=== PATIENT | male | born 1935 | race Caucasian/White ===

== ENCOUNTER 2021-10-16 16:28 | Inpatient (IN) ==
[2021-10-16 17:47] LABS: Hematocrit 24 % (42-52); Hemoglobin 7.9 g/dL (14.0-18.0); Mean Corpuscular HGB Conc 33 g/dL (31-36); Mean Corpuscular Hemoglobin 33 pg (27-31); Mean Corpuscular Volume 101 fL (80-94); Mean Platelet Volume 8.3 fL (7.4-10.4); Platelet Count 202 10^3/uL (150-450); Red Blood Count 2.38 10^6 /uL (4.18-5.48); Red Cell Distribution Width 27 % (10-15); White Blood Count 5.6 10^3/uL (3.5-10.8)
[2021-10-16 17:55] LABS: INR 1.28 (0.86-1.15)
[2021-10-16 18:16] LABS: Albumin 3.4 g/dL (3.2-5.2); Albumin/Globulin Ratio 1.5 (1-3); Calcium 8.6 mg/dL (8.6-10.3); Globulin 2.3 g/dL (2-4); Total Bilirubin 0.9 mg/dL (0.2-1.0); Total Protein 5.7 g/dL (6.4-8.9); eGFR CKD-EPI 18.8 (>60)
[2021-10-16 18:43] LABS: Macrocytosis 1+
[2021-10-16 18:44] LABS: Polychromasia 2+
[2021-10-16 18:47] LABS: Anisocytosis 2+
[2021-10-16 18:48] LABS: ABS Lymphocytes 1.8 10^3/ul (1.0-4.8); ABS Monocytes 0.8 10^3/ul (0-0.8); ABS Neutrophils 2.8 10^3/ul (1.5-7.7); Eosinophil % 0.5 %; Lymphocyte % 32.7 %; Nucleated Red Blood Cells % 0.5
[2021-10-16 19:22] LABS: High Sensitivity Troponin 1 Hr 16 pg/mL (<20)
[2021-10-16] MEDS ORDERED: Albuterol HFA INHALER 8 gm MDI INH PRN (21:22)
[2021-10-16] MEDS ORDERED: Dextrose 50% Syringe 50 ml 25 GM/50 ML SYRINGE IV PUSH PRN (21:26)
[2021-10-16] MEDS ORDERED: Furosemide 40 mg/4 ml IV VIAL IV ONE (22:23)
[2021-10-17] MEDS: Albuterol HFA INHALER 8 gm MDI INH PRN ×4 (02:48→17:35)
[2021-10-17 05:32] LABS: Hematocrit 26 % (42-52); Hemoglobin 8.7 g/dL (14.0-18.0); Mean Corpuscular HGB Conc 33 g/dL (31-36); Mean Corpuscular Hemoglobin 33 pg (27-31); Mean Corpuscular Volume 98 fL (80-94); Mean Platelet Volume 8.2 fL (7.4-10.4); Platelet Count 181 10^3/uL (150-450); Red Blood Count 2.68 10^6 /uL (4.18-5.48); Red Cell Distribution Width 26 % (10-15)
[2021-10-17 06:03] LABS: ABS Lymphocytes 0.6 10^3/ul (1.0-4.8); ABS Monocytes 0.1 10^3/ul (0-0.8); ABS Neutrophils 4.3 10^3/ul (1.5-7.7); Eosinophil % 0.1 %; Lymphocyte % 11.5 %; Nucleated Red Blood Cells % 0.5
[2021-10-17 06:17] LABS: Calcium 8.6 mg/dL (8.6-10.3); eGFR CKD-EPI 18.9 (>60)
[2021-10-17 06:27] LABS: Potassium 5.1 mmol/L (3.5-5.0)
[2021-10-17] MEDS: Mometasone/Formoter 200/5 MDI INH SCH ×2 (07:21→19:36)
[2021-10-17] MEDS: SPIRIVA Respimat (tiotropium) 2.5 mcg/inh Inhaler INH SCH (07:21)
[2021-10-17] MEDS: HYDROcodone/ACETAMIN 5/325 mg TAB PO PRN (08:11)
[2021-10-17] MEDS: NF: Lifitegrast (NF) 1 BTL BOTH EYES SCH ×2 (09:03→23:33)
[2021-10-17] MEDS: Carboxymethylcellulose/Glyceri 10 ML OPHTH.GEL lubricant eye gel BOTH EYES SCH (10:30)
[2021-10-17] MEDS ORDERED: Furosemide 40 mg/4 ml IV VIAL IV ONE (11:58)
[2021-10-17] MEDS: Albuterol HFA INHALER 8 gm MDI INH SCH ×2 (19:36→22:52)
[2021-10-17] MEDS ORDERED: INSULIN SUBCUT SCH (21:00)
[2021-10-17] MEDS ORDERED: INSULIN DETEMIR U SUBCUT SCH (21:00)
[2021-10-17] MEDS ORDERED: Ondansetron 4 mg VIAL 2 MG/ML 2 ml VIAL IV ONE (21:01)
[2021-10-17] MEDS: Aspirin EC 81 mg TAB.EC (enteric coated) PO SCH (21:22)
[2021-10-18] MEDS: Albuterol HFA INHALER 8 gm MDI INH SCH ×4 (03:51→19:28)
[2021-10-18] MEDS ORDERED: Al Hydrox/Mg Hydrox/Simet LIQ 30 ML UDC PO ONE ×2 (04:28→07:20)
[2021-10-18 05:23] LABS: Hematocrit 27 % (42-52); Hemoglobin 8.9 g/dL (14.0-18.0); Mean Corpuscular HGB Conc 34 g/dL (31-36); Mean Corpuscular Hemoglobin 34 pg (27-31); Mean Corpuscular Volume 100 fL (80-94); Mean Platelet Volume 8.1 fL (7.4-10.4); Platelet Count 165 10^3/uL (150-450); Red Blood Count 2.67 10^6 /uL (4.18-5.48); Red Cell Distribution Width 26 % (10-15)
[2021-10-18 05:47] LABS: Calcium 8.5 mg/dL (8.6-10.3); Magnesium 2.2 mg/dL (1.9-2.7); Potassium 4.7 mmol/L (3.5-5.0); eGFR CKD-EPI 18.5 (>60)
[2021-10-18 06:53] LABS: Basophilic Stippling 2+; Macrocytosis 2+
[2021-10-18 06:54] LABS: Polychromasia 2+
[2021-10-18 06:55] LABS: Schistocytes 1+
[2021-10-18 07:05] LABS: ABS Monocytes 0.6 10^3/ul (0-0.8); ABS Neutrophils 2.3 10^3/ul (1.5-7.7); Lymphocyte % 26.4 %
[2021-10-18] MEDS: SPIRIVA Respimat (tiotropium) 2.5 mcg/inh Inhaler INH SCH (07:26)
[2021-10-18] MEDS: Mometasone/Formoter 200/5 MDI INH SCH ×2 (07:26→19:28)
[2021-10-18] MEDS: Carboxymethylcellulose/Glyceri 10 ML OPHTH.GEL lubricant eye gel BOTH EYES SCH (07:48)
[2021-10-18] MEDS ORDERED: Furosemide 40 mg/4 ml IV VIAL IV ONE (09:58)
[2021-10-18] MEDS: NF: Lifitegrast (NF) 1 BTL BOTH EYES SCH (11:56)
[2021-10-18] MEDS ORDERED: Piperacillin/Tazobac ADVAN 3.375 GM in NS 0.9% 100 ml BAG 100 ML IV ONE (12:49)
[2021-10-18 12:50] LABS: C Reactive Protein 7.71 mg/L (<8.01)
[2021-10-18] MEDS: HYDROcodone/ACETAMIN 5/325 mg TAB PO PRN ×2 (12:51→19:57)
[2021-10-18] MEDS ORDERED: Zosyn per Pharmacy NOTE FOLLOW UP SCH (13:00)
[2021-10-18] MEDS ORDERED: Furosemide 40 mg/4 ml IV VIAL IV SLOW PU ONE (15:32)
[2021-10-18] MEDS ORDERED: HYDROcodone/ACETAMIN 5/325 mg TAB PO ONE (15:34)
[2021-10-18] MEDS: ZOSYN 3.375 GM Q12H per EXTENDED INFUSION IV SCH (19:26)
[2021-10-18] MEDS ORDERED: Ondansetron 4 mg VIAL 2 MG/ML 2 ml VIAL IV ONE (19:36)
[2021-10-18] MEDS ORDERED: Morphine 10 MG/ML VIAL (1 ml) IV ONE (22:32)
[2021-10-19] MEDS: Aspirin EC 81 mg TAB.EC (enteric coated) PO SCH ×2 (00:15→19:51)
[2021-10-19] MEDS: NF: Lifitegrast (NF) 1 BTL BOTH EYES SCH ×2 (00:16→08:30)
[2021-10-19] MEDS: Albuterol HFA INHALER 8 gm MDI INH SCH ×2 (07:33→19:49)
[2021-10-19] MEDS: SPIRIVA Respimat (tiotropium) 2.5 mcg/inh Inhaler INH SCH (07:33)
[2021-10-19] MEDS: Mometasone/Formoter 200/5 MDI INH SCH ×2 (07:33→19:50)
[2021-10-19] MEDS: HYDROcodone/ACETAMIN 5/325 mg TAB PO PRN ×3 (08:32→22:00)
[2021-10-19] MEDS: Carboxymethylcellulose/Glyceri 10 ML OPHTH.GEL lubricant eye gel BOTH EYES SCH (08:33)
[2021-10-19] MEDS: ZOSYN 3.375 GM Q12H per EXTENDED INFUSION IV SCH (08:35)
[2021-10-19] MEDS ORDERED: Furosemide 40 mg/4 ml IV VIAL IV ONE ×2 (09:17)
[2021-10-19 09:38] LABS: Hematocrit 28 % (42-52); Hemoglobin 9.3 g/dL (14.0-18.0); Mean Corpuscular HGB Conc 33 g/dL (31-36); Mean Corpuscular Hemoglobin 33 pg (27-31); Mean Corpuscular Volume 100 fL (80-94); Mean Platelet Volume 8.3 fL (7.4-10.4); Platelet Count 153 10^3/uL (150-450); Red Blood Count 2.81 10^6 /uL (4.18-5.48); Red Cell Distribution Width 27 % (10-15); White Blood Count 8.5 10^3/uL (3.5-10.8)
[2021-10-19 10:05] LABS: Albumin 3.4 g/dL (3.2-5.2); Albumin/Globulin Ratio 1.5 (1-3); Calcium 8.1 mg/dL (8.6-10.3); Direct Bilirubin 0.2 mg/dL (0.03-0.18); Globulin 2.3 g/dL (2-4); Indirect Bilirubin 0.8 mg/dL (0.3-1.0); Potassium 4.4 mmol/L (3.5-5.0); Total Protein 5.7 g/dL (6.4-8.9); eGFR CKD-EPI 16.8 (>60)
[2021-10-19 10:42] LABS: Basophilic Stippling 2+; Polychromasia 2+
[2021-10-19 10:44] LABS: Macrocytosis 1+
[2021-10-19 10:50] LABS: ABS Lymphocytes 3.2 10^3/ul (1.0-4.8)
[2021-10-19] MEDS ORDERED: Simethicone SUSP ORALSYR 66.66 MG/ML PO PRN (12:09)
[2021-10-19] MEDS: Polyethylene Glycol 3350 17 GM PACKET PO PRN (14:50)
[2021-10-19] MEDS: Dextran 70/Hypromellose Tears Eye Drops 15 ml BTL (for Artificials Tears) BOTH EYES SCH (16:51)
[2021-10-19] MEDS: Senna TAB 8.6 mg TAB PO PRN (19:51)
[2021-10-20 06:04] LABS: Hematocrit 27 % (42-52); Hemoglobin 8.8 g/dL (14.0-18.0); Mean Corpuscular HGB Conc 33 g/dL (31-36); Mean Corpuscular Hemoglobin 33 pg (27-31); Mean Corpuscular Volume 101 fL (80-94); Mean Platelet Volume 8.7 fL (7.4-10.4); Platelet Count 139 10^3/uL (150-450); Red Blood Count 2.62 10^6 /uL (4.18-5.48); Red Cell Distribution Width 27 % (10-15); White Blood Count 6.5 10^3/uL (3.5-10.8)
[2021-10-20 06:06] LABS: ABS Lymphocytes 1.1 10^3/ul (1.0-4.8); ABS Monocytes 1.6 10^3/ul (0-0.8); ABS Neutrophils 3.9 10^3/ul (1.5-7.7); Eosinophil % 0.1 %; Lymphocyte % 16.2 %; Nucleated Red Blood Cells % 0.5
[2021-10-20 06:24] LABS: Calcium 7.7 mg/dL (8.6-10.3); Potassium 4.2 mmol/L (3.5-5.0); eGFR CKD-EPI 14.7 (>60)
[2021-10-20] MEDS: Albuterol HFA INHALER 8 gm MDI INH SCH ×2 (07:44→19:26)
[2021-10-20] MEDS: SPIRIVA Respimat (tiotropium) 2.5 mcg/inh Inhaler INH SCH (07:44)
[2021-10-20] MEDS: Mometasone/Formoter 200/5 MDI INH SCH ×2 (07:44→19:26)
[2021-10-20] MEDS: Dextran 70/Hypromellose Tears Eye Drops 15 ml BTL (for Artificials Tears) BOTH EYES SCH ×3 (08:03→21:58)
[2021-10-20] MEDS: Carboxymethylcellulose/Glyceri 10 ML OPHTH.GEL lubricant eye gel BOTH EYES SCH (08:17)
[2021-10-20] MEDS: Aspirin EC 81 mg TAB.EC (enteric coated) PO SCH (19:39)
[2021-10-20] MEDS: HYDROcodone/ACETAMIN 5/325 mg TAB PO PRN (21:14)
[2021-10-21 05:51] LABS: Hematocrit 25 % (42-52); Hemoglobin 8.3 g/dL (14.0-18.0); Mean Corpuscular HGB Conc 33 g/dL (31-36); Mean Corpuscular Hemoglobin 33 pg (27-31); Mean Corpuscular Volume 100 fL (80-94); Mean Platelet Volume 8.4 fL (7.4-10.4); Platelet Count 130 10^3/uL (150-450); Red Blood Count 2.53 10^6 /uL (4.18-5.48); Red Cell Distribution Width 27 % (10-15); White Blood Count 7.5 10^3/uL (3.5-10.8)
[2021-10-21 05:53] LABS: ABS Lymphocytes 1.9 10^3/ul (1.0-4.8); ABS Monocytes 2.2 10^3/ul (0-0.8); ABS Neutrophils 3.5 10^3/ul (1.5-7.7); Eosinophil % 0.3 %; Lymphocyte % 25.2 %; Nucleated Red Blood Cells % 0.4
[2021-10-21 06:05] LABS: Calcium 7.5 mg/dL (8.6-10.3); Potassium 4.6 mmol/L (3.5-5.0); eGFR CKD-EPI 12.6 (>60)
[2021-10-21 06:13] LABS: Anisocytosis 1+; Basophilic Stippling 1+; Polychromasia 1+
[2021-10-21] MEDS: SPIRIVA Respimat (tiotropium) 2.5 mcg/inh Inhaler INH SCH (07:48)
[2021-10-21] MEDS: Mometasone/Formoter 200/5 MDI INH SCH ×2 (07:50→19:06)
[2021-10-21] MEDS: Albuterol HFA INHALER 8 gm MDI INH SCH ×2 (07:53→19:06)
[2021-10-21] MEDS: Carboxymethylcellulose/Glyceri 10 ML OPHTH.GEL lubricant eye gel BOTH EYES SCH (08:17)
[2021-10-21] MEDS: Dextran 70/Hypromellose Tears Eye Drops 15 ml BTL (for Artificials Tears) BOTH EYES SCH ×2 (08:51→21:48)
[2021-10-21] MEDS: Oxymetazoline 0.05% NASAL SPR 15 ML BTL RIGHT NARE PRN (13:59)
[2021-10-21 21:18] LABS: Hematocrit 25 % (42-52); Hemoglobin 8.1 g/dL (14.0-18.0)
[2021-10-21] MEDS: Aspirin EC 81 mg TAB.EC (enteric coated) PO SCH (21:32)
[2021-10-22] MEDS: Oxymetazoline 0.05% NASAL SPR 15 ML BTL RIGHT NARE PRN (03:17)
[2021-10-22 06:03] LABS: Hematocrit 25 % (42-52); Hemoglobin 8.1 g/dL (14.0-18.0); Mean Corpuscular HGB Conc 33 g/dL (31-36); Mean Corpuscular Hemoglobin 33 pg (27-31); Mean Corpuscular Volume 100 fL (80-94); Mean Platelet Volume 8.8 fL (7.4-10.4); Platelet Count 128 10^3/uL (150-450); Red Blood Count 2.47 10^6 /uL (4.18-5.48); White Blood Count 12.6 10^3/uL (3.5-10.8)
[2021-10-22 06:21] LABS: Calcium 7.3 mg/dL (8.6-10.3); Magnesium 2.1 mg/dL (1.9-2.7); Potassium 4.8 mmol/L (3.5-5.0); eGFR CKD-EPI 11.8 (>60)
[2021-10-22 06:49] LABS: Red Cell Distribution Width 26 % (10-15)
[2021-10-22] MEDS: Albuterol HFA INHALER 8 gm MDI INH SCH ×2 (07:40→20:16)
[2021-10-22] MEDS: Mometasone/Formoter 200/5 MDI INH SCH ×2 (07:41→20:16)
[2021-10-22] MEDS: SPIRIVA Respimat (tiotropium) 2.5 mcg/inh Inhaler INH SCH (07:41)
[2021-10-22] MEDS ORDERED: Darbepoetin Alfa Albumen Free 500 MCG/ML SYRINGE SUBCUT ONE (08:00)
[2021-10-22] MEDS: Carboxymethylcellulose/Glyceri 10 ML OPHTH.GEL lubricant eye gel BOTH EYES SCH (09:00)
[2021-10-22] MEDS: Dextran 70/Hypromellose Tears Eye Drops 15 ml BTL (for Artificials Tears) BOTH EYES SCH ×2 (09:00→22:12)
[2021-10-22] MEDS ORDERED: Bumetanide IV 0.25 MG/ML 4 ml VIAL (1 mg) SLOW PUSH ONE (12:00)
[2021-10-22] MEDS: Polyethylene Glycol 3350 17 GM PACKET PO PRN (16:36)
[2021-10-22] MEDS: Aspirin EC 81 mg TAB.EC (enteric coated) PO SCH (21:02)
[2021-10-22] MEDS: HYDROcodone/ACETAMIN 5/325 mg TAB PO PRN (21:07)
[2021-10-23] MEDS: Oxymetazoline 0.05% NASAL SPR 15 ML BTL RIGHT NARE PRN ×2 (06:03→08:54)
[2021-10-23 06:06] LABS: Hematocrit 22 % (42-52); Hemoglobin 7.2 g/dL (14.0-18.0); Mean Corpuscular HGB Conc 33 g/dL (31-36); Mean Corpuscular Hemoglobin 33 pg (27-31); Mean Corpuscular Volume 100 fL (80-94); Platelet Count 128 10^3/uL (150-450); Red Blood Count 2.17 10^6 /uL (4.18-5.48); Red Cell Distribution Width 26 % (10-15); White Blood Count 14.6 10^3/uL (3.5-10.8)
[2021-10-23 06:25] LABS: Calcium 7.1 mg/dL (8.6-10.3); eGFR CKD-EPI 10.6 (>60)
[2021-10-23 06:30] LABS: Potassium 5.1 mmol/L (3.5-5.0)
[2021-10-23 07:32] LABS: Anisocytosis 2+
[2021-10-23 07:33] LABS: ABS Lymphocytes 1.5 10^3/ul (1.0-4.8); ABS Monocytes 4.4 10^3/ul (0-0.8); ABS Neutrophils 8.7 10^3/ul (1.5-7.7); Nucleated Red Blood Cells % 0.1
[2021-10-23 07:34] LABS: Eosinophil % 0.1 %; Lymphocyte % 10.1 %
[2021-10-23] MEDS: Mometasone/Formoter 200/5 MDI INH SCH ×2 (07:44→18:57)
[2021-10-23] MEDS: Albuterol HFA INHALER 8 gm MDI INH SCH ×2 (07:44→18:57)
[2021-10-23] MEDS: SPIRIVA Respimat (tiotropium) 2.5 mcg/inh Inhaler INH SCH (07:44)
[2021-10-23 08:42] LABS: C Reactive Protein 177.08 mg/L (<8.01)
[2021-10-23] MEDS: Dextran 70/Hypromellose Tears Eye Drops 15 ml BTL (for Artificials Tears) BOTH EYES SCH ×2 (10:05→21:27)
[2021-10-23] MEDS: Polyethylene Glycol 3350 17 GM PACKET PO PRN (10:06)
[2021-10-23] MEDS: Carboxymethylcellulose/Glyceri 10 ML OPHTH.GEL lubricant eye gel BOTH EYES SCH (10:12)
[2021-10-23] MEDS ORDERED: cefTRIAXone 1 gm/50 mL NS BAG 1 GM/50 ML BAG IVPB SCH (11:00)
[2021-10-23] MEDS: Azithromycin 500 mg/250 ml NS 500 MG/250 ML BAG IVPB SCH (11:38)
[2021-10-23] MEDS ORDERED: Bumetanide IV 0.25 MG/ML 4 ml VIAL (1 mg) SLOW PUSH ONE (12:00)
[2021-10-23 15:00] LABS: Hepatitis B Surface Ab Not Immune (Immune)
[2021-10-23 15:28] LABS: Hepatitis B Surface Antigen Nonreactive (Nonreactive)
[2021-10-23] MEDS: Senna TAB 8.6 mg TAB PO PRN (16:34)
[2021-10-23] MEDS: Aspirin EC 81 mg TAB.EC (enteric coated) PO SCH (21:25)
[2021-10-24 05:46] LABS: Hematocrit 22 % (42-52); Hemoglobin 7.2 g/dL (14.0-18.0); Mean Corpuscular HGB Conc 33 g/dL (31-36); Mean Corpuscular Hemoglobin 32 pg (27-31); Mean Corpuscular Volume 99 fL (80-94); Mean Platelet Volume 8.6 fL (7.4-10.4); Platelet Count 166 10^3/uL (150-450); Red Blood Count 2.25 10^6 /uL (4.18-5.48); Red Cell Distribution Width 26 % (10-15); White Blood Count 11.6 10^3/uL (3.5-10.8)
[2021-10-24 06:27] LABS: Calcium 7.3 mg/dL (8.6-10.3); eGFR CKD-EPI 10.5 (>60)
[2021-10-24 06:29] LABS: Potassium 5.1 mmol/L (3.5-5.0)
[2021-10-24 07:42] LABS: Anisocytosis 2+; Polychromasia 1+
[2021-10-24 07:45] LABS: Spherocytes 1+
[2021-10-24 07:46] LABS: ABS Lymphocytes 1.5 10^3/ul (1.0-4.8); ABS Monocytes 2.8 10^3/ul (0-0.8); ABS Neutrophils 7.2 10^3/ul (1.5-7.7); Eosinophil % 0.1 %; Lymphocyte % 12.9 %; Nucleated Red Blood Cells % 0.1
[2021-10-24] MEDS: Carboxymethylcellulose/Glyceri 10 ML OPHTH.GEL lubricant eye gel BOTH EYES SCH (08:18)
[2021-10-24] MEDS: Dextran 70/Hypromellose Tears Eye Drops 15 ml BTL (for Artificials Tears) BOTH EYES SCH ×2 (08:19→21:06)
[2021-10-24] MEDS: Insulin GLARGINE 100 un/ml 10 ml VIAL SUBCUT SCH (08:20)
[2021-10-24] MEDS: HYDROcodone/ACETAMIN 5/325 mg TAB PO PRN ×2 (08:22→21:04)
[2021-10-24] MEDS: Polyethylene Glycol 3350 17 GM PACKET PO PRN (08:24)
[2021-10-24] MEDS: Albuterol HFA INHALER 8 gm MDI INH SCH ×2 (08:38→19:23)
[2021-10-24] MEDS: Mometasone/Formoter 200/5 MDI INH SCH ×2 (08:38→19:23)
[2021-10-24] MEDS: SPIRIVA Respimat (tiotropium) 2.5 mcg/inh Inhaler INH SCH (08:39)
[2021-10-24] MEDS: Azithromycin 500 mg/250 ml NS 500 MG/250 ML BAG IVPB SCH (10:09)
[2021-10-24] MEDS ORDERED: fentaNYL 100 mcg/2 ml 50 MCG/ML VIAL ONE (11:57)
[2021-10-24] MEDS ORDERED: Midazolam 2 mg/2 ml VIAL 1 mg/ml 2 ml VIAL (2 mg) ONE (11:57)
[2021-10-24] MEDS ORDERED: Clindamycin 600 MG/D5W BAG 600 MG/50 ML BAG IV ONE (12:00)
[2021-10-24] MEDS: cefTRIAXone 1 gm/50 mL D5W 1 GM/50 ML BAG IV SCH (12:15)
[2021-10-24] MEDS: Heparin 1,000 UNIT/ML 10 ml (10,000 UNITS) CATHLAB/DIALYSIS DIALYSIS ONE ×2 (17:58→18:24)
[2021-10-24] MEDS: Senna TAB 8.6 mg TAB PO PRN (20:59)
[2021-10-24] MEDS: Aspirin EC 81 mg TAB.EC (enteric coated) PO SCH (20:59)
[2021-10-25 06:31] LABS: Hematocrit 24 % (42-52); Hemoglobin 7.8 g/dL (14.0-18.0); Mean Corpuscular HGB Conc 33 g/dL (31-36); Mean Corpuscular Hemoglobin 32 pg (27-31); Mean Corpuscular Volume 97 fL (80-94); Mean Platelet Volume 8.5 fL (7.4-10.4); Platelet Count 181 10^3/uL (150-450); Red Blood Count 2.42 10^6 /uL (4.18-5.48); Red Cell Distribution Width 26 % (10-15); White Blood Count 8.1 10^3/uL (3.5-10.8)
[2021-10-25 06:33] LABS: ABS Lymphocytes 1.3 10^3/ul (1.0-4.8); ABS Monocytes 2.1 10^3/ul (0-0.8); ABS Neutrophils 4.6 10^3/ul (1.5-7.7); Eosinophil % 0.3 %; Lymphocyte % 16.5 %
[2021-10-25 07:13] LABS: Potassium 4.8 mmol/L (3.5-5.0)
[2021-10-25 07:14] LABS: Calcium 7.3 mg/dL (8.6-10.3); Magnesium 1.9 mg/dL (1.9-2.7); eGFR CKD-EPI 13.9 (>60)
[2021-10-25] MEDS: SPIRIVA Respimat (tiotropium) 2.5 mcg/inh Inhaler INH SCH (07:18)
[2021-10-25] MEDS: Mometasone/Formoter 200/5 MDI INH SCH ×2 (07:19→19:32)
[2021-10-25] MEDS: Albuterol HFA INHALER 8 gm MDI INH SCH ×2 (07:19→19:32)
[2021-10-25] MEDS: Insulin GLARGINE 100 un/ml 10 ml VIAL SUBCUT SCH (08:15)
[2021-10-25] MEDS: Dextran 70/Hypromellose Tears Eye Drops 15 ml BTL (for Artificials Tears) BOTH EYES SCH ×2 (08:16→20:07)
[2021-10-25] MEDS: Carboxymethylcellulose/Glyceri 10 ML OPHTH.GEL lubricant eye gel BOTH EYES SCH (08:17)
[2021-10-25] MEDS: Polyethylene Glycol 3350 17 GM PACKET PO PRN (08:17)
[2021-10-25] MEDS ORDERED: Heparin 1,000 UNIT/ML 10 ml (10,000 UNITS) CATHLAB/DIALYSIS DIALYSIS ONE (11:00)
[2021-10-25] MEDS: Azithromycin 500 mg/250 ml NS 500 MG/250 ML BAG IVPB SCH (12:50)
[2021-10-25] MEDS: cefTRIAXone 1 gm/50 mL D5W 1 GM/50 ML BAG IV SCH (16:57)
[2021-10-25] MEDS: Bumetanide IV 0.25 MG/ML 4 ml VIAL (1 mg) SLOW PUSH SCH (17:14)
[2021-10-25] MEDS: Aspirin EC 81 mg TAB.EC (enteric coated) PO SCH (19:56)
[2021-10-25] MEDS: HYDROcodone/ACETAMIN 5/325 mg TAB PO PRN (20:00)
[2021-10-26 06:37] LABS: Hematocrit 26 % (42-52); Hemoglobin 8.9 g/dL (14.0-18.0); Mean Corpuscular HGB Conc 34 g/dL (31-36); Mean Corpuscular Hemoglobin 33 pg (27-31); Mean Corpuscular Volume 97 fL (80-94); Mean Platelet Volume 8.4 fL (7.4-10.4); Platelet Count 193 10^3/uL (150-450); Red Blood Count 2.71 10^6 /uL (4.18-5.48); Red Cell Distribution Width 26 % (10-15); White Blood Count 7.6 10^3/uL (3.5-10.8)
[2021-10-26 06:52] LABS: Anion Gap 8 mmol/L (2-11); Blood Urea Nitrogen 53 mg/dL (6-24); CO2 Carbon Dioxide 26 mmol/L (22-32); Calcium 7.3 mg/dL (8.6-10.3); Chloride 104 mmol/L (101-111); Glucose 115 mg/dL (70-100); Magnesium 1.8 mg/dL (1.9-2.7); Potassium 3.9 mmol/L (3.5-5.0); Sodium 138 mmol/L (135-145); eGFR CKD-EPI 17.1 (>60)
[2021-10-26 07:22] LABS: Anisocytosis 1+
[2021-10-26 07:24] LABS: ABS Lymphocytes 1.8 10^3/ul (1.0-4.8); ABS Neutrophils 4.6 10^3/ul (1.5-7.7)
[2021-10-26] MEDS: SPIRIVA Respimat (tiotropium) 2.5 mcg/inh Inhaler INH SCH (08:36)
[2021-10-26] MEDS: Albuterol HFA INHALER 8 gm MDI INH SCH ×2 (08:36→19:40)
[2021-10-26] MEDS: Mometasone/Formoter 200/5 MDI INH SCH ×2 (08:36→19:39)
[2021-10-26] MEDS: Insulin GLARGINE 100 un/ml 10 ml VIAL SUBCUT SCH (08:48)
[2021-10-26] MEDS: Dextran 70/Hypromellose Tears Eye Drops 15 ml BTL (for Artificials Tears) BOTH EYES SCH ×2 (08:54→21:15)
[2021-10-26] MEDS: Carboxymethylcellulose/Glyceri 10 ML OPHTH.GEL lubricant eye gel BOTH EYES SCH (08:54)
[2021-10-26] MEDS ORDERED: Bumetanide IV 0.25 MG/ML 4 ml VIAL (1 mg) SLOW PUSH ONE (10:00)
[2021-10-26] MEDS: Bumetanide IV 0.25 MG/ML 4 ml VIAL (1 mg) SLOW PUSH SCH (10:24)
[2021-10-26] MEDS: Azithromycin 500 mg/250 ml NS 500 MG/250 ML BAG IVPB SCH (10:24)
[2021-10-26 11:02] LABS: Folate > 20.00 ng/mL (5.90-24.80)
[2021-10-26] MEDS: cefTRIAXone 1 gm/50 mL D5W 1 GM/50 ML BAG IV SCH (12:23)
[2021-10-26] MEDS: Aspirin EC 81 mg TAB.EC (enteric coated) PO SCH (20:44)
[2021-10-27] MEDS: HYDROcodone/ACETAMIN 5/325 mg TAB PO PRN (02:05)
[2021-10-27 05:23] LABS: Calcium 7.3 mg/dL (8.6-10.3); Magnesium 1.8 mg/dL (1.9-2.7); Potassium 4.3 mmol/L (3.5-5.0); eGFR CKD-EPI 14.6 (>60)
[2021-10-27] MEDS: Insulin GLARGINE 100 un/ml 10 ml VIAL SUBCUT SCH (08:28)
[2021-10-27] MEDS: Bumetanide IV 0.25 MG/ML 4 ml VIAL (1 mg) SLOW PUSH SCH (08:30)
[2021-10-27] MEDS: Carboxymethylcellulose/Glyceri 10 ML OPHTH.GEL lubricant eye gel BOTH EYES SCH (08:33)
[2021-10-27] MEDS: Dextran 70/Hypromellose Tears Eye Drops 15 ml BTL (for Artificials Tears) BOTH EYES SCH ×2 (08:33→20:24)
[2021-10-27] MEDS: Mometasone/Formoter 200/5 MDI INH SCH ×2 (09:50→19:08)
[2021-10-27] MEDS: Albuterol HFA INHALER 8 gm MDI INH SCH ×2 (09:50→19:08)
[2021-10-27] MEDS: SPIRIVA Respimat (tiotropium) 2.5 mcg/inh Inhaler INH SCH (09:51)
[2021-10-27] MEDS: cefTRIAXone 1 gm/50 mL D5W 1 GM/50 ML BAG IV SCH (11:28)
[2021-10-27] MEDS: Aspirin EC 81 mg TAB.EC (enteric coated) PO SCH (20:24)
[2021-10-28] MEDS ORDERED: Morphine 4 MG/ML VIAL (1 ml) IV PRN (00:40)
[2021-10-28 05:57] LABS: Hematocrit 25 % (42-52); Hemoglobin 8.3 g/dL (14.0-18.0); Mean Corpuscular HGB Conc 33 g/dL (31-36); Mean Corpuscular Hemoglobin 33 pg (27-31); Mean Corpuscular Volume 98 fL (80-94); Mean Platelet Volume 8.2 fL (7.4-10.4); Platelet Count 212 10^3/uL (150-450); Red Blood Count 2.55 10^6 /uL (4.18-5.48); Red Cell Distribution Width 24 % (10-15); White Blood Count 9.3 10^3/uL (3.5-10.8)
[2021-10-28 07:34] LABS: Calcium 7.2 mg/dL (8.6-10.3); Potassium 4.7 mmol/L (3.5-5.0)
[2021-10-28 07:39] LABS: eGFR CKD-EPI 12.7 (>60)
[2021-10-28] MEDS: SPIRIVA Respimat (tiotropium) 2.5 mcg/inh Inhaler INH SCH (07:57)
[2021-10-28] MEDS: Mometasone/Formoter 200/5 MDI INH SCH ×2 (07:58→20:02)
[2021-10-28] MEDS: Albuterol HFA INHALER 8 gm MDI INH SCH ×2 (07:58→20:02)
[2021-10-28 08:07] LABS: Anisocytosis 2+
[2021-10-28 08:08] LABS: ABS Eosinophils 0.1 10^3/ul (0-0.6); ABS Neutrophils 5.2 10^3/ul (1.5-7.7); Eosinophil % 1.3 %; Lymphocyte % 21.4 %; Nucleated Red Blood Cells % 0.3; Polychromasia 1+
[2021-10-28] MEDS: Bumetanide IV 0.25 MG/ML 4 ml VIAL (1 mg) SLOW PUSH SCH (09:00)
[2021-10-28] MEDS: Carboxymethylcellulose/Glyceri 10 ML OPHTH.GEL lubricant eye gel BOTH EYES SCH (09:00)
[2021-10-28] MEDS: Dextran 70/Hypromellose Tears Eye Drops 15 ml BTL (for Artificials Tears) BOTH EYES SCH ×2 (09:00→21:37)
[2021-10-28] MEDS: Insulin GLARGINE 100 un/ml 10 ml VIAL SUBCUT SCH (09:37)
[2021-10-28] MEDS ORDERED: Heparin 1,000 UNIT/ML 10 ml (10,000 UNITS) CATHLAB/DIALYSIS DIALYSIS PRN (14:56)
[2021-10-28] MEDS ORDERED: HYDROmorphone 0.5 MG/0.5 ML SYRINGE IV SLOW PU PRN (18:18)
[2021-10-28] MEDS: Aspirin EC 81 mg TAB.EC (enteric coated) PO SCH (21:31)
[2021-10-29 06:21] LABS: Hematocrit 25 % (42-52); Hemoglobin 8.5 g/dL (14.0-18.0); Mean Corpuscular HGB Conc 34 g/dL (31-36); Mean Corpuscular Hemoglobin 33 pg (27-31); Mean Corpuscular Volume 98 fL (80-94); Mean Platelet Volume 7.8 fL (7.4-10.4); Platelet Count 200 10^3/uL (150-450); Red Blood Count 2.59 10^6 /uL (4.18-5.48); Red Cell Distribution Width 24 % (10-15); White Blood Count 7.9 10^3/uL (3.5-10.8)
[2021-10-29 07:08] LABS: Calcium 7.3 mg/dL (8.6-10.3); Magnesium 1.6 mg/dL (1.9-2.7); Potassium 4.3 mmol/L (3.5-5.0); eGFR CKD-EPI 20.8 (>60)
[2021-10-29] MEDS: Mometasone/Formoter 200/5 MDI INH SCH ×2 (07:09→19:48)
[2021-10-29] MEDS: SPIRIVA Respimat (tiotropium) 2.5 mcg/inh Inhaler INH SCH (07:09)
[2021-10-29] MEDS: Albuterol HFA INHALER 8 gm MDI INH SCH ×2 (07:09→19:49)
[2021-10-29] MEDS ORDERED: Magnesium Sulfate 2 gm BAG 2 GM/50 ML BAG IVPB ONE (07:40)
[2021-10-29] MEDS: Insulin GLARGINE 100 un/ml 10 ml VIAL SUBCUT SCH (09:28)
[2021-10-29] MEDS: Bumetanide IV 0.25 MG/ML 4 ml VIAL (1 mg) SLOW PUSH SCH (09:30)
[2021-10-29] MEDS: Dextran 70/Hypromellose Tears Eye Drops 15 ml BTL (for Artificials Tears) BOTH EYES SCH ×2 (09:31→21:13)
[2021-10-29] MEDS: Carboxymethylcellulose/Glyceri 10 ML OPHTH.GEL lubricant eye gel BOTH EYES SCH (09:32)
[2021-10-29] MEDS: Heparin 1,000 UNIT/ML 10 ml (10,000 UNITS) CATHLAB/DIALYSIS DIALYSIS ONE (17:48)
[2021-10-29] MEDS: Aspirin EC 81 mg TAB.EC (enteric coated) PO SCH (21:09)
[2021-10-30 06:14] LABS: Calcium 7.4 mg/dL (8.6-10.3); Magnesium 1.9 mg/dL (1.9-2.7); Potassium 4.7 mmol/L (3.5-5.0); eGFR CKD-EPI 15.7 (>60)
[2021-10-30] MEDS: Albuterol HFA INHALER 8 gm MDI INH SCH (07:25)
[2021-10-30] MEDS: SPIRIVA Respimat (tiotropium) 2.5 mcg/inh Inhaler INH SCH (07:26)
[2021-10-30] MEDS: Mometasone/Formoter 200/5 MDI INH SCH (07:26)
[2021-10-30] MEDS: Bumetanide IV 0.25 MG/ML 4 ml VIAL (1 mg) SLOW PUSH SCH (08:44)
[2021-10-30] MEDS: Dextran 70/Hypromellose Tears Eye Drops 15 ml BTL (for Artificials Tears) BOTH EYES SCH (08:46)
[2021-10-30] MEDS: Oxymetazoline 0.05% NASAL SPR 15 ML BTL RIGHT NARE PRN (08:46)
[2021-10-30] MEDS: Insulin GLARGINE 100 un/ml 10 ml VIAL SUBCUT SCH (09:04)
[2021-10-30] MEDS: Carboxymethylcellulose/Glyceri 10 ML OPHTH.GEL lubricant eye gel BOTH EYES SCH (09:05)
[2021-10-30 13:15] VITALS: BP 130/70
[2021-10-30] MEDS: Heparin 1,000 UNIT/ML 10 ml (10,000 UNITS) CATHLAB/DIALYSIS DIALYSIS ONE (13:29)
== END 2021-10-30 11:29 | disposition swing bed (61) | DRG 189 ==
LOC: EDHOLD 16:28 → ED 16:28 → SUATTDRO 21:19 → MEDTELE 10-17 01:14 → SUATTDRO 10-17 14:00 → MED 10-20 18:01
PROVIDERS: ADMIT Hospitalist; ATTEND Student in an Organized Health Care Education/Training Program

== ENCOUNTER 2021-10-30 13:14 | Inpatient (IN) ==
[2021-10-30] MEDS ORDERED: diPHENhydraMINE 25 mg TAB PO PRN (13:56)
[2021-10-30] MEDS ORDERED: Dextrose 50% Syringe 50 ml 25 GM/50 ML SYRINGE IV PUSH PRN (13:58)
[2021-10-30] MEDS ORDERED: Polyethylene Glycol 3350 17 GM PACKET PO PRN (14:02)
[2021-10-30] MEDS ORDERED: Oxymetazoline 0.05% NASAL SPR 15 ML BTL RIGHT NARE PRN (14:02)
[2021-10-30] MEDS ORDERED: Simethicone SUSP ORALSYR 66.66 MG/ML PO PRN (14:03)
[2021-10-30] MEDS: Mometasone/Formoter 200/5 MDI INH SCH (19:32)
[2021-10-30] MEDS: Aspirin EC 81 mg TAB.EC (enteric coated) PO SCH (22:03)
[2021-10-30] MEDS: LIFITEGRAST BOTH EYES SCH (22:08)
[2021-10-31] MEDS: Mometasone/Formoter 200/5 MDI INH SCH ×2 (07:56→20:10)
[2021-10-31] MEDS: SPIRIVA Respimat (tiotropium) 2.5 mcg/inh Inhaler INH SCH (07:56)
[2021-10-31] MEDS: Dextran 70/Hypromellose Tears Eye Drops 15 ml BTL (for Artificials Tears) BOTH EYES SCH (09:30)
[2021-10-31] MEDS: Bumetanide IV 0.25 MG/ML 4 ml VIAL (1 mg) SLOW PUSH SCH (09:30)
[2021-10-31] MEDS: Insulin GLARGINE 100 un/ml 10 ml VIAL SUBCUT SCH (09:33)
[2021-10-31] MEDS: LIFITEGRAST BOTH EYES SCH ×2 (09:41→20:20)
[2021-10-31] MEDS: Aspirin EC 81 mg TAB.EC (enteric coated) PO SCH (20:16)
[2021-11-01 07:40] LABS: Calcium 7.4 mg/dL (8.6-10.3); Potassium 4.9 mmol/L (3.5-5.0); eGFR CKD-EPI 14.3 (>60)
[2021-11-01] MEDS: Mometasone/Formoter 200/5 MDI INH SCH ×2 (08:38→19:54)
[2021-11-01] MEDS: SPIRIVA Respimat (tiotropium) 2.5 mcg/inh Inhaler INH SCH (08:39)
[2021-11-01] MEDS: Bumetanide IV 0.25 MG/ML 4 ml VIAL (1 mg) SLOW PUSH SCH (08:57)
[2021-11-01] MEDS: Dextran 70/Hypromellose Tears Eye Drops 15 ml BTL (for Artificials Tears) BOTH EYES SCH (09:02)
[2021-11-01] MEDS: LIFITEGRAST BOTH EYES SCH ×2 (09:04→20:24)
[2021-11-01] MEDS: Insulin GLARGINE 100 un/ml 10 ml VIAL SUBCUT SCH (09:04)
[2021-11-01] MEDS ORDERED: Heparin 1,000 UNIT/ML 10 ml (10,000 UNITS) CATHLAB/DIALYSIS DIALYSIS ONE (11:00)
[2021-11-01] MEDS: Albuterol HFA INHALER 8 gm MDI INH PRN (19:55)
[2021-11-01] MEDS: Aspirin EC 81 mg TAB.EC (enteric coated) PO SCH (20:24)
[2021-11-02] MEDS: Mometasone/Formoter 200/5 MDI INH SCH ×2 (07:16→19:33)
[2021-11-02] MEDS: SPIRIVA Respimat (tiotropium) 2.5 mcg/inh Inhaler INH SCH (07:16)
[2021-11-02] MEDS: Bumetanide IV 0.25 MG/ML 4 ml VIAL (1 mg) SLOW PUSH SCH (08:36)
[2021-11-02] MEDS: Dextran 70/Hypromellose Tears Eye Drops 15 ml BTL (for Artificials Tears) BOTH EYES SCH (08:39)
[2021-11-02] MEDS: LIFITEGRAST BOTH EYES SCH ×2 (08:40→20:57)
[2021-11-02] MEDS: Insulin GLARGINE 100 un/ml 10 ml VIAL SUBCUT SCH (08:40)
[2021-11-02] MEDS: Albuterol HFA INHALER 8 gm MDI INH PRN (19:34)
[2021-11-02] MEDS: Aspirin EC 81 mg TAB.EC (enteric coated) PO SCH (20:56)
[2021-11-03] MEDS: Mometasone/Formoter 200/5 MDI INH SCH ×2 (07:34→18:50)
[2021-11-03] MEDS: SPIRIVA Respimat (tiotropium) 2.5 mcg/inh Inhaler INH SCH (07:34)
[2021-11-03] MEDS: Bumetanide IV 0.25 MG/ML 4 ml VIAL (1 mg) SLOW PUSH SCH (09:02)
[2021-11-03] MEDS: Insulin GLARGINE 100 un/ml 10 ml VIAL SUBCUT SCH (09:03)
[2021-11-03] MEDS: Dextran 70/Hypromellose Tears Eye Drops 15 ml BTL (for Artificials Tears) BOTH EYES SCH (09:05)
[2021-11-03] MEDS: LIFITEGRAST BOTH EYES SCH ×2 (09:06→20:38)
[2021-11-03] MEDS: Albuterol HFA INHALER 8 gm MDI INH PRN (18:50)
[2021-11-03] MEDS: Aspirin EC 81 mg TAB.EC (enteric coated) PO SCH (20:26)
[2021-11-04] MEDS: SPIRIVA Respimat (tiotropium) 2.5 mcg/inh Inhaler INH SCH (07:36)
[2021-11-04] MEDS: Mometasone/Formoter 200/5 MDI INH SCH (07:36)
[2021-11-04 08:24] LABS: Calcium 7.5 mg/dL (8.6-10.3); eGFR CKD-EPI 10.9 (>60)
[2021-11-04] MEDS: Insulin GLARGINE 100 un/ml 10 ml VIAL SUBCUT SCH (08:39)
[2021-11-04 08:40] LABS: Hematocrit 22 % (42-52); Hemoglobin 7.5 g/dL (14.0-18.0); Mean Corpuscular HGB Conc 33 g/dL (31-36); Mean Corpuscular Hemoglobin 32 pg (27-31); Mean Corpuscular Volume 97 fL (80-94); Mean Platelet Volume 7.5 fL (7.4-10.4); Platelet Count 220 10^3/uL (150-450); Red Blood Count 2.31 10^6 /uL (4.18-5.48); Red Cell Distribution Width 23 % (10-15); White Blood Count 5.9 10^3/uL (3.5-10.8)
[2021-11-04] MEDS: Dextran 70/Hypromellose Tears Eye Drops 15 ml BTL (for Artificials Tears) BOTH EYES SCH (08:45)
[2021-11-04] MEDS: LIFITEGRAST BOTH EYES SCH ×2 (08:48→20:32)
[2021-11-04 09:50] LABS: Anisocytosis 2+
[2021-11-04 09:51] LABS: ABS Monocytes 1.4 10^3/ul (0-0.8); ABS Neutrophils 2.4 10^3/ul (1.5-7.7); Eosinophil % 0.4 %; Polychromasia 1+
[2021-11-04] MEDS: Bumetanide IV 0.25 MG/ML 4 ml VIAL (1 mg) SLOW PUSH SCH (10:00)
[2021-11-04] MEDS ORDERED: Heparin 1,000 UNIT/ML 10 ml (10,000 UNITS) CATHLAB/DIALYSIS DIALYSIS ONE (14:00)
[2021-11-04] MEDS: Aspirin EC 81 mg TAB.EC (enteric coated) PO SCH (20:12)
[2021-11-05] MEDS: SPIRIVA Respimat (tiotropium) 2.5 mcg/inh Inhaler INH SCH (07:33)
[2021-11-05] MEDS: Mometasone/Formoter 200/5 MDI INH SCH ×3 (07:35→18:50)
[2021-11-05] MEDS: Insulin GLARGINE 100 un/ml 10 ml VIAL SUBCUT SCH (09:20)
[2021-11-05] MEDS: Heparin 1,000 UNIT/ML 10 ml (10,000 UNITS) CATHLAB/DIALYSIS DIALYSIS PRN ×2 (11:30→11:41)
[2021-11-05] MEDS: Dextran 70/Hypromellose Tears Eye Drops 15 ml BTL (for Artificials Tears) BOTH EYES SCH (12:08)
[2021-11-05] MEDS: LIFITEGRAST BOTH EYES SCH ×2 (12:08→21:44)
[2021-11-05] MEDS: Bumetanide IV 0.25 MG/ML 4 ml VIAL (1 mg) SLOW PUSH SCH (12:08)
[2021-11-05] MEDS ORDERED: Darbepoetin Alfa Albumen Free 500 MCG/ML SYRINGE SUBCUT SCH (14:00)
[2021-11-05] MEDS: Aspirin EC 81 mg TAB.EC (enteric coated) PO SCH (21:36)
[2021-11-06] MEDS: SPIRIVA Respimat (tiotropium) 2.5 mcg/inh Inhaler INH SCH (07:29)
[2021-11-06] MEDS: Mometasone/Formoter 200/5 MDI INH SCH (07:31)
[2021-11-06] MEDS: Bumetanide IV 0.25 MG/ML 4 ml VIAL (1 mg) SLOW PUSH SCH (08:30)
[2021-11-06] MEDS: Dextran 70/Hypromellose Tears Eye Drops 15 ml BTL (for Artificials Tears) BOTH EYES SCH (08:30)
[2021-11-06] MEDS: Insulin GLARGINE 100 un/ml 10 ml VIAL SUBCUT SCH (08:31)
[2021-11-06] MEDS: LIFITEGRAST BOTH EYES SCH (08:31)
[2021-11-06] MEDS ORDERED: Heparin 1,000 UNIT/ML 10 ml (10,000 UNITS) CATHLAB/DIALYSIS DIALYSIS ONE (09:00)
[2021-11-06 12:59] VITALS: BP 121/64
[2021-11-06] MEDS ORDERED: COVID-19 VACCINE, MRNA(MODERNA) BOOSTER/PF 50 MCG/0.25 ML IM ONE (15:30)
== END 2021-11-06 15:40 | DRG 175 ==
LOC: MED 13:14 → SUATTDRO 13:14
PROVIDERS: ADMIT Student in an Organized Health Care Education/Training Program; ATTEND Internal Medicine